=== PATIENT | male | born 1960 | race Caucasian/White ===

== ENCOUNTER 2016-06-14 22:22 | Emergency (ER) | payer OTHER ==
[~2016-06-14] VITALS: Ht 165.1 cm; Wt 79.4 kg
[2016-06-14 22:30] VITALS: BP_SYST 139
[2016-06-14] MEDS ORDERED: IPRATROPIUM/ALBUTEROL SULFATE 3 ML AMPUL.NEB INH ONE (23:15)
[2016-06-15 00:20] VITALS: BP_SYST 132
== END 2016-06-15 00:20 | disposition home or self-care (01) ==
LOC: SED 22:22
DX: J20.9 Acute bronchitis, unspecified (principal); E78.5 Hyperlipidemia, unspecified; E11.9 Type 2 diabetes mellitus without complications; I10 Essential (primary) hypertension; K21.9 Gastro-esophageal reflux disease without esophagitis; J45.909 Unspecified asthma, uncomplicated; J44.9 Chronic obstructive pulmonary disease, unspecified; Z88.0 Allergy status to penicillin
CPT/HCPCS: 94640; 99283

== ENCOUNTER 2018-02-26 21:18 | Emergency (ER) | payer OTHER ==
[~2018-02-26] VITALS: Ht 165.1 cm; Wt 77.1 kg
[2018-02-26] MEDS ORDERED: TETRACAINE HCL 0.5% OPHTHALMIC DROPS 15 ML OP ONE (21:19)
[2018-02-26 21:32] VITALS: BP_SYST 148
[2018-02-26 22:26] VITALS: BP_SYST 128
== END 2018-02-26 22:26 | disposition home or self-care (01) ==
LOC: SED 21:18
DX: H11.31 Conjunctival hemorrhage, right eye (principal); J44.9 Chronic obstructive pulmonary disease, unspecified; K21.9 Gastro-esophageal reflux disease without esophagitis; E11.9 Type 2 diabetes mellitus without complications; I10 Essential (primary) hypertension; E78.5 Hyperlipidemia, unspecified; Z86.79 Personal history of other diseases of the circulatory system; Z88.0 Allergy status to penicillin
CPT/HCPCS: 99282

== ENCOUNTER 2019-01-08 19:14 | Emergency (ER) | payer OTHER ==
[~2019-01-08] VITALS: Ht 165.1 cm; Wt 77.1 kg
[2019-01-08 19:20] VITALS: BP_SYST 150
--- NOTE | 2019-01-08 19:20 | NUR ---
Patient triaged and placed in waiting room. VSS and patient appears in no acute distress at this time. Accompanied by self, awaiting available bed, and MD notified of need for MSE.
--- NOTE | 2019-01-08 20:05 | NUR ---
Patient to ER bed 1 to gown for evaluation. Side rails up. Report given to Royce PENA.
--- NOTE | 2019-01-08 20:10 | NUR ---
Pt [id number] came in with a complaint of cough, no shortness of breath noted, no chest pain. No other complaint. Has history of DM, HTN and asthma. Safety precaution observed. Will continue to monitor Pt.
--- NOTE | 2019-01-08 20:20 | NUR ---
ER MD Childers at bedside for medical evaluation.
[2019-01-08] MEDS ORDERED: ALBUTEROL SULFATE 0.083% 2.5 MG/3 ML VIAL.NEB INH ONE (20:30)
[2019-01-08 20:40] VITALS: BP_SYST 135
--- NOTE | 2019-01-08 20:40 | NUR ---
Patient given written and verbal discharge instructions and verbalizes understanding. ER MD Childers discussed with patient the results and treatment provided. Patient in stable condition. ID arm band removed. Rx of codeine given. Patient educated on pain management and to follow up with PMD. Pain Scale 0/10. Opportunity for questions provided and answered. Medication side effect fact sheet provided.
== END 2019-01-08 20:40 | disposition home or self-care (01) ==
LOC: SED 19:14
DX: J06.9 Acute upper respiratory infection, unspecified (principal); J44.9 Chronic obstructive pulmonary disease, unspecified; E11.9 Type 2 diabetes mellitus without complications; K21.9 Gastro-esophageal reflux disease without esophagitis; I10 Essential (primary) hypertension; E78.5 Hyperlipidemia, unspecified; Z88.0 Allergy status to penicillin
CPT/HCPCS: 94640; 99283; J7613

== ENCOUNTER 2023-08-02 18:17 | Emergency (ER) | payer OTHER ==
[~2023-08-02] VITALS: Ht 165.1 cm; Wt 77.1 kg
[2023-08-02 18:19] VITALS: BP_SYST 135; PULSE 83; RESP 16; TEMP 98.7; O2SAT 96
[2023-08-02 19:52] LABS: BASOPHILS # (AUTO) 0.1 K/uL (0.0-0.2); BASOPHILS % (AUTO) 1.1 % (0.0-2.0); EOSINOPHILS # (AUTO) 0.1 K/uL (0.0-0.4); EOSINOPHILS % (AUTO) 1.5 % (0.0-4.0); HEMATOCRIT 39.6 % (36-54); HEMOGLOBIN 13.7 g/dL (14.0-18.0); LYMPHOCYTES # (AUTO) 2.2 K/uL (1.0-5.5); LYMPHOCYTES % (AUTO) 30.1 % (20.5-51.5); MEAN CORPUSCULAR HEMOGLOBIN 32 pg (27-31); MEAN CORPUSCULAR HGB CONC 35 % (32-36); MEAN CORPUSCULAR VOLUME 93 fL (79.0-98.0); MONOCYTES # (AUTO) 0.8 K/uL (0.0-1.0); MONOCYTES % (AUTO) 11.1 % (1.7-9.3); NEUTROPHILS # (AUTO) 4.2 K/uL (1.8-7.7); NEUTROPHILS % (AUTO) 56.2 % (40.0-70.0); PLATELET COUNT (AUTO) 176 K/uL (130-430); RED BLOOD CELL COUNT(AUTO) 4.26 MIL/uL (4.2-6.2); RED CELL DISTRIBUTION WIDTH 14.5 % (9.0-15.0); WHITE BLOOD COUNT (AUTO) 7.4 K/uL (4.8-10.8)
[2023-08-02] MEDS: IPRATROPIUM/ALBUTEROL SULFATE 3 ML AMPUL.NEB (DUONEB) INH ONE (20:05)
[2023-08-02 20:10] LABS: ALANINE AMINOTRANSFERASE 23 U/L (12-78); ALBUMIN 3.2 g/dL (3.4-4.8); ANION GAP 10 (5-15); ASPARTATE AMINOTRANSFERASE 22 U/L (10-37); BILIRUBIN,DIRECT 0.1 mg/dL (0.0-0.3); CALCIUM 8.7 mg/dL (8.4-11.0); CARBON DIOXIDE 21 mmol/L (23-29); CHLORIDE 109 mmol/L (98-107); CREATININE 1.69 mg/dL (0.55-1.30); GFR AFRICAN AMERICAN 53 mL/min (>90); GLUCOSE 100 mg/dL (74-106); SODIUM SERUM 140 mmol/L (136-145); TOTAL BILIRUBIN 0.4 mg/dL (0.0-1.0); UREA NITROGEN, BLOOD 43 mg/dL (8-21)
[2023-08-02 20:16] LABS: GFR NON AFRICAN-AMERICAN 44 mL/min (>90)
[2023-08-02 20:19] LABS: INR 1.8 (0.80-1.20); PROTHROMBIN TIME 17.9 SECS (9.5-12.5)
[2023-08-02] MEDS ORDERED: PRED20TA PO (21:07)
[2023-08-02 21:09] VITALS: O2SAT 96
[2023-08-02 21:59] LABS: COVID19 ANTIGEN SOFIA FIA NEGATIVE (NEGATIVE)
[2023-08-02 22:02] LABS: INFLUENZA TYPE A Negative (NEGATIVE)
[2023-08-02 22:04] LABS: INFLUENZA TYPE B POSITIVE (NEGATIVE)
[2023-08-02] MEDS ORDERED: OSEL75CA PO (22:06)
== END 2023-08-02 21:39 | disposition home or self-care (01) ==
LOC: SED 18:17
DX: J44.1 Chronic obstructive pulmonary disease with (acute) exacerbation (principal); Z20.822 Contact with and (suspected) exposure to COVID-19; E11.9 Type 2 diabetes mellitus without complications; I10 Essential (primary) hypertension; K21.9 Gastro-esophageal reflux disease without esophagitis; E78.5 Hyperlipidemia, unspecified; Z88.0 Allergy status to penicillin; Z79.899 Other long term (current) drug therapy
CPT/HCPCS: 36415; 71045; 80048; 80076; 83605; 83880; 84484; 85025; 85610; 85730; 94640; 99284

== ENCOUNTER 2024-01-09 15:05 | Emergency (ER) | payer MEDICAID, OTHER ==
[~2024-01-09] VITALS: Ht 165.1 cm; Wt 77.1 kg
[~2024-01-09 15:05] MED LIST: OSEL75CA PO; PRED20TA PO
[2024-01-09 15:13] VITALS: BP_SYST 132; PULSE 94; RESP 16; TEMP 98.7; O2SAT 97
[2024-01-09] MEDS: IPRATROPIUM BROM 0.5 MG/2.5 ML VIAL.NEB (ATROVENT) INH ONE (15:48)
[2024-01-09] MEDS: ALBUTEROL SULFATE 0.083% 2.5 MG/3 ML VIAL.NEB INH ONE (15:48)
[2024-01-09] MEDS ORDERED: PRED20TA PO (16:47)
[2024-01-09 16:54] VITALS: BP_SYST 132; PULSE 94; RESP 16; TEMP 98.7; O2SAT 97
[2024-01-09] MEDS: predniSONE 20 MG TABLET PO ONE (16:55)
== END 2024-01-09 17:03 | disposition home or self-care (01) ==
LOC: SED 15:05
DX: J44.1 Chronic obstructive pulmonary disease with (acute) exacerbation (principal); J45.901 Unspecified asthma with (acute) exacerbation; R05.9 Cough, unspecified; E11.9 Type 2 diabetes mellitus without complications; I10 Essential (primary) hypertension; Z88.0 Allergy status to penicillin; Z79.52 Long term (current) use of systemic steroids
CPT/HCPCS: 99283; 94640; J7512